=== PATIENT | female | born 1995 | race African-American/Black ===

== ENCOUNTER 2019-01-22 12:32 | Outpatient (REF) | payer MEDICAID, SELFPAY ==
--- NOTE | 2019-01-22 11:15 | PAPFT_PTH ---
PATIENT: MARGARETTE DAMIAN LOC: [facility] U#:[id number] AGE/SX: 24/F ROOM: RE01/22/[address]: Vipul Lozoya MD : [id number] BED: DIS: 01/22/2019 SPEC #: [id number] RECD: 01/22/19 13:03 STATUS: ARACELIS REQ #: [id number] MARY: 01/22/19 11:[address]: Vipul Lozoya DEPT: [facility] Cytology RECD BY: Rosa Sam ENTERED: 01/22/19 13:04 SP TYPE: PAPFT OTHR DR: Unknown,Unknown Tissues: 1 - CX/ENDOCX FOR PAP SMEARS Procedures: PAP THIN PREP/[facility] Screening Comments: [id number] (CHLAMYDIA/GC)
[2019-01-25 15:47] LABS: Chlamydia Result Negative; GC Result Negative; Specimen Description SEE COMMENTS
== END 2019-01-22 12:52 ==
LOC: LBN 12:32
PROVIDERS: Visit Provider Obstetrics & Gynecology
DX: Z11.3 Encounter for screening for infections with a predominantly sexual mode of transmission (principal); Z12.4 Encounter for screening for malignant neoplasm of cervix; Z11.51 Encounter for screening for human papillomavirus (HPV)
CPT/HCPCS: 87491; 87591; 88142

== ENCOUNTER 2019-01-28 07:05 | Outpatient (CLI) | payer MEDICAID, SELFPAY ==
--- NOTE | 2019-01-28 10:45 | DI.US_ITS ---
EXAM: US PELVIS TRANSVAGINAL CLINICAL HISTORY: Pelvic pain s/p ectopic R10.2 PELVIC PAIN TECHNIQUE: Ultrasound performed using standard protocol. COMPARISON: No exams were available for comparison FINDINGS: Ultrasound was performed transabdominally and transvaginally. Please see the accompanying data sheet for measurements of pelvic structures. Uterus contains a 9 millimeter, low to anechoic lesion consi stent with a small fibroid. There is a small quantity of free fluid in the cul-de-sac. There are na bothian cysts. Endometrial stripe is homogeneous and 8 millimeters in thickness. Left ovary contains a septated cyst measuring 19 millimeters in diameter with minimal internal echoes consistent with debris or hemorrhage. Otherwise left ovary unremarkable. Right ovary contains a 16 millimeter in diameter complex mass with a thick wall, this may represent a collapsed cyst. Additionally a complex 15 millimeter septated, predominantly cystic lesion is noted on the right ovary. IMPRESSION: Indeterminate right and left ovarian lesions, probable complex cysts with hemorrhage or debris plu s a right-sided corpus luteum or collapsed cyst. Follow-up transvaginal ultrasound recommended in 4- 6 weeks to reassess the ovaries and exclude neoplastic disease, ectopic , or other process. Please correlate today's examination with current test to exclude ectopic at this time.
== END 2019-01-28 07:25 ==
PROVIDERS: Visit Provider Obstetrics & Gynecology
DX: R10.2 Pelvic and perineal pain (principal); D25.9 Leiomyoma of uterus, unspecified; N83.12 Corpus luteum cyst of left ovary; N83.291 Other ovarian cyst, right side
CPT/HCPCS: 76830; 76856